=== PATIENT | male | born 1950 | race Two or more races ===

== ENCOUNTER → 2025-04-10 | Outpatient (CLI) | payer MEDICARE, BC, SELFPAY ==
--- NOTE | 2025-04-10 07:30 | XR_ITS ---
Examination: MRI lumbar spine without contrast Date and time of exam: 2024 0749 hours Comparison August 04, 2022 INDICATIONS: Lower back pain 16 years radiating down both legs Technique: Multiple MRI axial and sagittal sections lumbar spine. Sagittal T2-weighted images, TR 3500, TE 118 T1 weighted transverse sections, TR 688 T8.5, T2-weighted sagittal sections T1 weighted sagittal sections TR 621, TE 30 T2 axial sections, TR 4, 190, TE 84. Findings: Grade 1 anterolisthesis L4 on L5 No lumbar fracture Normal marrow signal lumbar vertebral bodies Diffuse lumbar disc desiccation No spondylolisthesis L5-S1 3 mm central lumbar disc bulge contiguous with the right and left S1 nerve roots L4-L5 severe spinal stenosis, axial image 4, prominent facet arthropathy, 6 mm central lumbar disc bulge circumferentially narrowing the thecal sac L3-L4 no disc protrusion L2-L3 5 mm central lumbar disc bulge IMPRESSION: L5-S1 3 mm central lumbar disc bulge L4-L5 severe overall spinal stenosis as above L2-L3 5 mm central lumbar disc bulge
== END | disposition home or self-care (01) ==
PROVIDERS: PCP Physician Assistant; Referring Provider Physician Assistant; Visit Provider Physician Assistant
DX: M51.369 Other intervertebral disc degeneration, lumbar region without mention of lumbar back pain or lower extremity pain (principal); M48.061 Spinal stenosis, lumbar region without neurogenic claudication; M47.816 Spondylosis without myelopathy or radiculopathy, lumbar region
CPT/HCPCS: 72148

== ENCOUNTER → 2025-10-07 | Outpatient (CLI) | payer MEDICARE, SELFPAY ==
--- NOTE | 2025-10-07 10:30 | XR_ITS ---
EXAMINATION: Ultrasound abdominal aorta Date and time: September,, 1018 hours INDICATIONS: Nicotine dependence, smoking history years. TECHNIQUE AND FINDINGS: Sonographic images abdominal aorta Transverse dimension proximal aorta 2.7 cm mid aorta 1.7 cm distal aorta 1.4 cm right iliac 1.2 cm left iliac 1.0 cm IMPRESSION: Negative for abdominal aortic aneurysm
== END | disposition home or self-care (01) ==
PROVIDERS: PCP Physician Assistant; Referring Provider Internal Medicine; Visit Provider Internal Medicine
DX: Z87.891 Personal history of nicotine dependence (principal)
CPT/HCPCS: 76770